=== PATIENT | female | born 1965 | race African-American/Black ===

== ENCOUNTER 2017-03-29 08:06 | Emergency (ER) | payer OTHER ==
[2017-03-29 08:21] VITALS: BP 118/86; PULSE 61; TEMP 98; BMI 23.1
[2017-03-29] MEDS ORDERED: KETOROLAC TROMETHAMINE 60 MG/2 ML VIAL IM ONE (08:31)
[2017-03-29] MEDS ORDERED: KETOROLAC TROMETHAMINE 60 MG/2 ML VIAL ONE (08:35)
--- NOTE | 2017-03-29 08:36 | PDOC ---
History of Present Illness - General History Source: Patient - History of Present Illness Occurred: reports: other Upper Extremity Pain Location: left: shoulder <Chey Viera - Last Filed: 03/29/17 08:31> <Mehdi La - Last Filed: 03/29/17 17:37> - General Chief Complaint: Pain Stated Complaint: PAIN Time Seen by Provider: 03/29/17 08:23 Past History - Past Medical History Anemia: No Asthma: No Cancer: No Cardiac Disorders: No CVA: No COPD: No CHF: No Dementia: No Diabetes: No GI Disorders: Yes (GERD, DIVERTICULITIS) Disorders: No HTN: Yes Hypercholesterolemia: No Liver Disease: No Suicide Attempt (Hx): No Seizures: No Thyroid Disease: No - Surgical History Abdominal Surgery: No Appendectomy: No Cardiac Surgery: No Cholecystectomy: No Lung Surgery: No Neurologic Surgery: No Orthopedic Surgery: No - Family Disease History Family Disease History: Heart Disease: Mother - Immunization History Td Vaccination: Yes (UTD, JANUARY 2013) - Psycho/Social/Smoking Cessation Hx Anxiety: No Suicidal Ideation: No Smoking Status: Yes (QUIT 2005) Smoking History: Never smoked Have you smoked in the past 12 months: No Number of Cigarettes Smoked Daily: 0 If you are a former smoker, when did you quit?: 15 YRS Information on smoking cessation initiated: No Hx Alcohol Use: Yes (SOCIAL) Drug/Substance Use Hx: No Substance Use Type: None Hx Substance Use Treatment: No <Chey Viera - Last Filed: 03/29/17 08:31> <Mehdi La - Last Filed: 03/29/17 17:37> - Past Medical History Allergies/Adverse Reactions: Allergies Allergy/AdvReac Type Severity Reaction Status Date / Time No Known Allergies Allergy Verified 03/29/17 08:21 Home Medications: Ambulatory Orders Enalapril Maleate [Vasotec -] 20 mg PO DAILY 10/29/13 Hydralazine HCl 50 mg PO DAILY 05/11/16 Naproxen [Naprosyn -] 375 mg PO Q12H PRN 03/29/17 Review of Systems - Review of Systems Constitutional: No: Chills, Fever Respiratory: No: Shortness of Breath Cardiac (ROS): No: Chest Pain Musculoskeletal: Yes: Joint Pain. No: Joint Swelling <Chey Viera - Last Filed: 03/29/17 08:31> *Physical Exam - Vital Signs Last Vital Signs Temp Pulse Resp BP Pulse Ox 98 F 61 18 118/86 100 03/29/17 08:13 03/29/17 08:13 03/29/17 08:13 03/29/17 08:13 03/29/17 08:13 - Physical Exam General Appearance: Yes: Appropriately Dressed. No: Apparent Distress HEENT: positive: Normal Voice Neck: positive: Supple Respiratory/Chest: negative: Lungs Clear, Normal Breath Sounds, Respiratory Distress Cardiovascular: negative: Regular Rate, S1, S2 Extremity: positive: Normal Inspection, Tender (to anterior aspect of GH joint, no swelling, FROMI, NVI). negative: Swelling Integumentary: positive: Dry, Warm Neurologic: positive: Fully Oriented, Alert, Normal Mood/Affect <Chey Viera - Last Filed: 03/29/17 08:31> - Vital Signs Last Vital Signs Temp Pulse Resp BP Pulse Ox 98 F 61 18 118/86 100 03/29/17 08:13 03/29/17 08:13 03/29/17 08:13 03/29/17 08:13 03/29/17 08:13 <Mehdi La - Last Filed: 03/29/17 17:37> ED Treatment Course - Medications Given in the ED: ED Medications Discontinued Medications Generic Name Dose Route Start Last Admin Trade Name Freq PRN Reason Stop Dose Admin Ketorolac Tromethamine 60 mg 03/29/17 08:31 03/29/17 08:42 Toradol Injection - IM 03/29/17 08:32 60 mg ONCE ONE Administration <Mehdi La - Last Filed: 03/29/17 17:37> Medical Decision Making - Medical Decision Making 03/29/17 08:31 52-year-old female, chronic neck pain with herniated disc on MRI as per patient , substance abuse on suboxone, here with atraumatic L shoulder pain that started 2 weeks ago and has been persistent, worsening with movement. Taking naproxen with no relief. No chest pain or SOB. Denies acute neck pain and no upper extremity sensory changes, or weakness. See exam Atraumatic shoulder pain M/l MSK -dc w/ pain meds and ortho f/u given duration 03/29/17 08:36 <Chey Viera - Last Filed: 03/29/17 08:31> - Medical Decision Making 03/29/17 17:37 The patient was seen and evaluated in conjunction with SOUTH Viera under my direct supervision, ancillary studies were reviewed. I agree with the plan as outlined by SOUTH Viera. <Mehdi La - Last Filed: 03/29/17 17:37> *DC/Admit/Observation/Transfer <Chey Viera - Last Filed: 03/29/17 08:31> <Mehdi La - Last Filed: 03/29/17 17:37> Diagnosis at time of Disposition: Shoulder pain, left Qualifiers: Chronicity: acute Qualified Code(s): M25.512 - Pain in left shoulder - Discharge Dispostion Disposition: HOME Condition at time of disposition: Good - Referrals Referrals: Mercedez Rodriguez [Primary Care Provider] - Arie Ortiz MD [Staff Physician] - - Patient Instructions Printed Discharge Instructions: Shoulder Sprain Additional Instructions: Continue taking over the counter pain meds and follow up with orthopedics
== END 2017-03-29 08:47 | disposition home or self-care (01) ==
LOC: JER 08:06
PROC: 3E0233Z Introduction of Anti-inflammatory into Muscle, Percutaneous Approach (ICD-10-PCS; principal; 2017-03-29)
DX: M25.512 Pain in left shoulder (principal); M54.2 Cervicalgia; G89.29 Other chronic pain; I10 Essential (primary) hypertension; K21.9 Gastro-esophageal reflux disease without esophagitis
CPT/HCPCS: 96372; 99282-25

== ENCOUNTER 2017-10-09 07:34 | Emergency (ER) | payer OTHER ==
[2017-10-09 08:09] VITALS: BP 138/71; PULSE 67; TEMP 98.8; BMI 22.8
[2017-10-09] MEDS ORDERED: KETOROLAC TROMETHAMINE 60 MG/2 ML VIAL IM ONE (08:09)
--- NOTE | 2017-10-09 08:09 | PDOC ---
History of Present Illness - General Chief Complaint: Back Pain Stated Complaint: CYST Time Seen by Provider: 10/09/17 08:00 History Source: Patient Exam Limitations: No Limitations - History of Present Illness Initial Comments: CHIEF COMPLAINT: 52 y/o female c/o right sided low back pain x 4 days. HISTORY OF PRESENT ILLNESS: The patient states she has been taking tylenol for her symptoms with little relief. She denies f/c, heavy lifting, injury to back , n/v/d, Cp, SOB, abd pain, flank pain, hematuria, dysuria, abnormal vaginal bleeding, abnormal vaginal discharge, saddle anesthesia, bowel/bladder incontinence. Vital signs on arrival are within normal limits REVIEW OF SYSTEMS: GENERAL/CONSTITUTIONAL: No fever/chills. No weakness. No weight change. GASTROINTESTINAL: no abd pain, nausea, vomiting, diarrhea. GENITOURINARY: No dysuria, frequency, or change in urination. MUSCULOSKELETAL: +right low back pain. No joint or muscle swelling or pain. No neck pain. SKIN: No rash or easy bruising. NEUROLOGIC: No headache, vertigo, loss of consciousness, or loss of sensation. PHYSICAL EXAM: GENERAL: The patient is awake, alert, and fully oriented, in no acute distress. She is ambulatory and well appearing. HEAD: Normal with no signs of trauma. ABDOMEN: Soft, non-distended, non-tender even to deep palpation, no hepatomegaly or splenomegaly, no masses. No flank pain with palpation. No suprapubic TTP. BACK: No CVA TTP b/l. Pain with palpation of right lumbar paravertebral muscles at L4-L5 as well as pain with palpation of right gluteal muscle. EXTREMITIES: Normal range of motion, no edema. NEUROLOGICAL: Normal speech, normal gait. CN II-XII grossly intact. No saddle anesthesia. Motor and sensory intact in b/l LEs. SKIN: Warm, dry, normal turgor, no rashes or lesions noted. Past History - Past Medical History Allergies/Adverse Reactions: Allergies Allergy/AdvReac Type Severity Reaction Status Date / Time No Known Allergies Allergy Verified 10/09/17 07:59 Home Medications: Ambulatory Orders Enalapril Maleate [Vasotec -] 20 mg PO DAILY 10/29/13 Anemia: No Asthma: No Cancer: No Cardiac Disorders: No CVA: No COPD: No CHF: No Dementia: No Diabetes: No GI Disorders: Yes (GERD, DIVERTICULITIS) Disorders: No HTN: Yes Hypercholesterolemia: No Liver Disease: No Seizures: No Thyroid Disease: No - Surgical History Abdominal Surgery: No Appendectomy: No Cardiac Surgery: No Cholecystectomy: No Lung Surgery: No Neurologic Surgery: No Orthopedic Surgery: No - Family Disease History Family Disease History: Heart Disease: Mother - Immunization History Td Vaccination: Yes (UTD, JANUARY 2013) - Suicide/Smoking/Psychosocial Hx Smoking Status: Yes (QUIT 2005) Smoking History: Never smoked Have you smoked in the past 12 months: No Number of Cigarettes Smoked Daily: 0 If you are a former smoker, when did you quit?: 15 YRS Information on smoking cessation initiated: No Hx Alcohol Use: No Drug/Substance Use Hx: No Substance Use Type: None Hx Substance Use Treatment: No Trauma Specific PMHX - Complaint Specific PMHX Arthritis: No *Physical Exam - Vital Signs Last Vital Signs Temp Pulse Resp BP Pulse Ox 98.8 F 67 18 138/71 100 10/09/17 07:50 10/09/17 07:50 10/09/17 07:50 10/09/17 07:50 10/09/17 07:50 Medical Decision Making - Medical Decision Making A/P: 52 y/o female with right sided low back pain/sciatica. Plan is as follows : 1. IM toradol 2. PO tylenol 3. UA/culture UA positive for UTI - will send rx for antibiotics. patient is driving so will not give muscle relaxer in the ER. Will d/c to home with rx for naproxen and flexeril. S When I went to find patient to give her the results and the plan for discharge, she was gone. Checked holding and vertical areas and patient was nowhere to be found - eloped. *DC/Admit/Observation/Transfer Diagnosis at time of Disposition: Low back pain Qualifiers: Chronicity: acute Back pain laterality: right Sciatica presence: with sciatica Sciatica laterality: sciatica of right side Qualified Code(s): M54.41 - Lumbago with sciatica, right side UTI (urinary tract infection) Qualifiers: Urinary tract infection type: acute cystitis Hematuria presence: without hematuria Qualified Code(s): N30.00 - Acute cystitis without hematuria - Discharge Dispostion Disposition: ELOPED Condition at time of disposition: Good - Referrals Referrals: Mercedez Rodriguez [Primary Care Provider] - - Patient Instructions Printed Discharge Instructions: DI for Back Pain With Sciatica Additional Instructions: Discharge Instructions: -You have a UTI and low back pain -Prescriptions were sent to your pharmacy for low back pain and the UTI. -One of the prescriptions may make you drowsy -Please do stretches shown to you in the ER multiple times per day -Apply heat and massage to affected area -Follow up with your doctor within 1 week -Return to the ER with any worsening or concerning symptoms. - Post Discharge Activity
[2017-10-09] MEDS ORDERED: KETOROLAC TROMETHAMINE 60 MG/2 ML VIAL ONE (08:20)
[2017-10-09] MEDS ORDERED: ACETAMINOPHEN 325 MG TABLET (FP) PO ONE (08:42)
[2017-10-09] MEDS ORDERED: ACETAMINOPHEN 325 MG TABLET (FP) ONE (08:44)
[2017-10-09 08:50] LABS: URINE APPEARANCE CLOUDY; URINE BILIRUBIN NEGATIVE (NEGATIVE); URINE BLOOD NEGATIVE (NEGATIVE); URINE COLOR YELLOW; URINE GLUCOSE (UA) NEGATIVE (NEGATIVE); URINE KETONE NEGATIVE (NEGATIVE); URINE NITRITE NEGATIVE (NEGATIVE); URINE PROTEIN NEGATIVE (NEGATIVE); URINE UROBILINOGEN NEGATIVE mg/dL (0.2-1.0)
[2017-10-09 08:51] LABS: URINE LEUK ESTERASE 3+ (NEGATIVE)
[2017-10-09 09:19] LABS: EPI CELLS MODERATE /HPF (FEW); URINE BACTERIA RARE /hpf (NONE SEEN); URINE MUCUS RARE
== END 2017-10-09 10:45 | disposition home or self-care (01) ==
LOC: JER 07:34
PROC: 3E0233Z Introduction of Anti-inflammatory into Muscle, Percutaneous Approach (ICD-10-PCS; principal; 2017-10-09)
DX: M54.41 Lumbago with sciatica, right side (principal)
CPT/HCPCS: 81003; 81015; 87086; 96372; 99282-25

== ENCOUNTER 2018-12-15 06:30 | Day surgery (SDC) | payer SELFPAY ==
[2018-12-15] MEDS ORDERED: HEPARIN NA (PORCINE) 5,000 UNITS/ML 1ML VIAL ONE (07:16)
[2018-12-15] MEDS ORDERED: ceFAZolin SODIUM 1 GM VIAL ONE ×2 (07:16→09:45)
[2018-12-15] MEDS ORDERED: MIDAZOLAM HCL 2 MG/2 ML SINGLE DOSE VIAL ONE ×2 (07:59)
[2018-12-15] MEDS ORDERED: fentaNYL CITRATE 250 MCG/5 ML VIAL ONE (09:26)
[2018-12-15] MEDS ORDERED: ROCURONIUM BROMIDE 50 MG/5 ML VIAL ONE ×2 (09:27→10:20)
[2018-12-15] MEDS ORDERED: PROPOFOL 20 ML ONE ×2 (09:27)
[2018-12-15] MEDS ORDERED: ceFAZolin SODIUM 1 GM VIAL IVPB ONE (09:32)
[2018-12-15] MEDS ORDERED: DEXAMETHASONE SOD PHOSPHATE 4 MG/1 ML VIAL ONE (09:45)
[2018-12-15] MEDS ORDERED: LIDOCAINE HCL/PF 2% SDV 5ML VIAL ONE (09:45)
[2018-12-15] MEDS ORDERED: LIDOCAINE HCL 1%, 10 MG/ML (20ML VIAL) INF ONE (10:26)
[2018-12-15] MEDS ORDERED: BACITRACIN 15 GM TUBE TOPICAL OINTMENT ONE (13:13)
[2018-12-15] MEDS ORDERED: ONDANSETRON 4 MG/2 ML VIAL IVPB PRN (14:16)
[2018-12-15] MEDS ORDERED: morphine SULFATE 4 MG/ML VIAL IVPUSH PRN (14:16)
[2018-12-15] MEDS ORDERED: ONDANSETRON 4 MG/2 ML VIAL IVPUSH PRN (14:22)
--- NOTE | 2018-12-15 14:29 | OP ---
Operative Note - Note: Operative Date: 12/15/18 Pre-Operative Diagnosis: cosmetic Operation: liposuction to abdomen, flanks and back, with fat grafting to the buttocks Post-Operative Diagnosis: Same as Pre-op Anesthesia: General Operative Report Dictated: Yes
[2018-12-15] MEDS ORDERED: LACTATED RINGERS SOLUTION 1,000 ML IV SCH ×2 (14:30)
[2018-12-15] MEDS: amLODIPine BESYLATE 5 MG TABLET (FP) PO SCH (16:35)
[2018-12-15] MEDS: ENALAPRIL MALEATE 5 MG TABLET (FP) PO SCH (16:35)
[2018-12-15 16:50] VITALS: BMI 24.1
[2018-12-15] MEDS: CEFAZOLIN 1 GM/D5W 1 GM/50 ML BAG IVPB SCH ×2 (16:55→21:12)
[2018-12-15] MEDS: oxyCODONE HCL 5 MG TABLET PO PRN (19:31)
[2018-12-15] MEDS ORDERED: hydrALAZINE HCL 50 MG TABLET (FP) PO SCH (22:00)
[2018-12-15] MEDS ORDERED: QUEtiapine FUMARATE 25 MG TABLET (FP) PO PRN (23:00)
[2018-12-16] MEDS: oxyCODONE HCL 5 MG TABLET PO PRN ×3 (02:29→12:02)
[2018-12-16] MEDS: CEFAZOLIN 1 GM/D5W 1 GM/50 ML BAG IVPB SCH ×2 (03:47→08:24)
[2018-12-16] MEDS ORDERED: HEPARIN NA (PORCINE) 5,000 UNITS/ML 1ML VIAL SQ SCH (07:00)
[2018-12-16] MEDS: ENALAPRIL MALEATE 5 MG TABLET (FP) PO SCH ×2 (07:28→09:39)
[2018-12-16] MEDS: amLODIPine BESYLATE 5 MG TABLET (FP) PO SCH ×2 (07:28→09:39)
[2018-12-16] MEDS ORDERED: NAPROXEN 250 MG TABLET (FP) PO ONE (08:40)
[2018-12-16] MEDS ORDERED: IBUPROFEN 400 MG TABLET (FP) PO PRN (09:02)
--- NOTE | 2018-12-16 09:18 | PN ---
Progress Note (short form) - Note Progress Note: Anesthesia postop note 53 y/o F s/p GA for liposuction and BBL POD#1, vss, aaox3, c/o soreness No anesthesia complications.
--- NOTE | 2018-12-16 09:24 | OP ---
DATE OF OPERATION: 12/15/2018 PROCEDURE: Liposuction to abdomen, flanks, and back with free-fat grafting to buttocks and hips. ATTENDING SURGEON: Dylan Lara MD RESTAURANT SERVER: None. ANESTHESIA: General endotracheal anesthesia. DESCRIPTION OF PROCEDURE: The patient is marked in the holding area. All risks, benefits, alternatives, limitations, and uncertainties of the surgery are discussed, understood, and agreed to proceed. The patient is given 5000 units of subcutaneous heparin preoperatively. She is given LUPE hose and sequential compression stockings in the holding area. She is then brought to the operating room where 2 g of Ancef were given preoperatively. The patient is positioned in the supine position after anesthesia was given. A Triana catheter was placed. She was prepped and draped in the standard surgical fashion. Position was carefully checked by Surgical and Anesthesia Teams. Timeout was called. The patient, procedure, side, and sites were verified. At this point, liposuction was then performed first by making several stab-wound incisions in predetermined locations. The patient is noted to have, prior to surgery, an umbilical hernia which is reduced prior to any liposuction being performed. The infiltration fluid is a total of 4 L of wetting solution used, 2 on the front and 2 on the back. The first 2 liters comprised of 1 L of normal saline with 20 mL of 1% lidocaine plain and 1 ampule of 1:100,000 epinephrine. The second 2 L, which were used on the back, contained only the ampule of epinephrine with no lidocaine. The infiltration is infiltrated and the full 20 minutes is waiting for hemostatic effect. After this, the safe technique of liposuction was then performed with pre and post tunneling with a 4-mm basket-tipped cannula. Liposuction was also performed with a 4-mm and 5-mm cannula, using the MicroAire Power-Assisted system. MicroAire harvesting system was also used. Fat is washed and processed through the MicroAire system. It is transferred into 20-mL syringes, which were allowed to gravity settle prior to fat injection. At the completion of liposuction, the endpoint is a smooth, even contour with the appearance of blood within the liposuction aspirate. The liposuction holes were closed with a series of interrupted 5-0 nylon suture. Dressings were applied with and Tegaderm. The patient was then transferred into a prone position after the drapes were removed. All operative assistants are available for the transfer. She is transferred onto a Alexis frame with prone view set up. All pressure points were carefully padded. The chest roll for the Alexis frame was properly positioned. The knees were padded. The Triana catheter was up for the transfer. Position was once again thoroughly checked by Surgical and Anesthesia Teams. The axillae were protected with foam. She was then reprepped and draped in the standard surgical fashion. The liposuction on the posterior is performed in the similar safe technique with infiltrating with a total of 2 L of wetting solution, as previously described. After 20 minutes of waiting for the hemostatic effect of the wetting solution, the safe technique of liposuction was performed. It should be noted that the total liposuction aspirate from the anterior surface was 1680 mL. The total liposuction aspirate on the posterior surface was 1000 mL. Post-tunneling was performed as on the anterior surface. The fat was then prepared for injection. It was transferred into 20-mL syringes. Using several stab-wound incisions at locations on the buttocks, the fat is injected in the subcutaneous plane only in the previously drawn areas that the patient is aware of. On the left side and right side, a total of 600 mL each is infiltrated. Endpoint is good symmetric contour. The liposuction and injection holes were closed with a series of interrupted 5-0 nylon suture. Dressings were the same as on the anterior surface. A specialty compression garment for fat grafting of the buttocks is then placed on the patient. The patient was transferred to a supine position for extubation and as soon as possible postoperatively will be transferred to a prone position. Patient awoken from anesthesia, neurovascularly intact, having tolerated the procedure well. DYLAN LARA M.D. [id number]
[2018-12-16 11:26] VITALS: PULSE 88; TEMP 98.3
[2018-12-16 11:50] VITALS: BP 136/64
--- NOTE | 2018-12-16 12:53 | PN ---
Progress Note (short form) - Note Progress Note: POD 1, n complications, all tissue viable without infection. Minimal drainage. Ambulating, receiving sq heparin. OK for discharge. Pain well controlled. f /u Thursday.
== END 2018-12-16 13:39 | disposition home or self-care (01) ==
LOC: JASUSAT 06:30 → JASU-SURG 06:30 → J6S 16:23 → JASUSAT 12-16 13:39
PROVIDERS: ATTEND Plastic Surgery
PROC: 0J073ZZ Alteration of Back Subcutaneous Tissue and Fascia, Percutaneous Approach (ICD-10-PCS; 2018-12-15)
PROC: 0J083ZZ Alteration of Abdomen Subcutaneous Tissue and Fascia, Percutaneous Approach (ICD-10-PCS; principal; 2018-12-15 08:00)
DX: Z41.1 Encounter for cosmetic surgery (principal)
CPT/HCPCS: 84703; 94760; J1644

== ENCOUNTER 2019-05-12 10:46 | Day surgery (SDC) | payer OTHER ==
[2019-05-06 10:57] VITALS: BMI 22.8
--- NOTE | 2019-05-12 07:33 | HP ---
History & Physical Update - History History: No Change - Physical Physical: No Change - Assessment Assessment: No Change - Plan Plan: No Change
--- NOTE | 2019-05-12 10:44 | OP ---
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
--- NOTE | 2019-05-12 10:45 | SURG ---
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 For further detail, please refer to operative report. Visit type - Case Type Case Type: Scheduled - New patient This patient is new to me today: Yes Date on this admission: 05/12/19
[~2019-05-12 10:46] MED LIST: BUPIVACAINE HCL/PF 0.5% (5 MG/ML) 30 ML VIAL IJ ONE; CEFAZOLIN 1 GM in DEXTROSE 5%-WATER - 100 ML IVPB ONE; DEXAMETHASONE SOD PHOSPHATE 4 MG/1 ML VIAL ONE; DEXAMETHASONE SOD PHOSPHATE/PF 10 MG/ML SDV ONE; EPHEDRINE SULFATE/0.9% NACL/PF 50 MG/10 ML SYRINGE NR ONE; GELATIN, ABSORBABLE 100 EACH SPONGE TP ONE; GUM MASTIC/STORAX/MSAL/ALCOHOL 1 DRP DROPSBTL MC ONE; KETAMINE HCL 200 MG/20 ML VIAL ONE; LACTATED RINGERS SOLUTION 1,000 ML IV SCH; LIDOCAINE 1%/EPI 1:100000 (20 ML MULTI DOSE VIAL) ONE; LIDOCAINE HCL/PF 2% SDV 5ML VIAL ONE; MIDAZOLAM HCL 2 MG/2 ML SINGLE DOSE VIAL ONE; ONDANSETRON 4 MG/2 ML VIAL IVPUSH PRN; ONDANSETRON 4 MG/2 ML VIAL ONE; PROPOFOL 20 ML ONE; SODIUM CHLORIDE 0.9% P/F 10 ML VIAL IJ ONE; THROMBIN (BOVINE) 5,000 UNIT VIAL TP ONE; THROMBIN (RECOMBINANT) 5,000 UNIT VIAL TP ONE; ceFAZolin SODIUM 1 GM VIAL ONE; oxyCODONE HCL 10 MG SUSTAINED ACTING TABLET PO ONE; oxyCODONE HCL 10 MG SUSTAINED ACTING TABLET PO STA; oxyCODONE HCL 5 MG TABLET ONE; oxyCODONE HCL 5 MG TABLET PO ONE
[2019-05-12] MEDS ORDERED: KETOROLAC TROMETHAMINE 30 MG/1 ML VIAL IVPUSH PRN (10:52)
[2019-05-12] MEDS ORDERED: oxyCODONE HCL 5 MG TABLET PO PRN (10:52)
[2019-05-12] MEDS ORDERED: ONDANSETRON 4 MG/2 ML VIAL ONE (10:52)
[2019-05-12] MEDS ORDERED: LACTATED RINGERS SOLUTION 1,000 ML IV SCH (11:00)
[2019-05-12] MEDS: KETOROLAC TROMETHAMINE 30 MG/1 ML VIAL IVPUSH PRN ×2 (11:02→23:02)
--- NOTE | 2019-05-12 11:35 | OP ---
DATE OF OPERATION: 05/12/2019 PREOPERATIVE DIAGNOSIS: Spinal stenosis C4-5, C5-6. POSTOPERATIVE DIAGNOSIS: Spinal stenosis C4-5, C5-6. PROCEDURES PERFORMED: 1. Anterior cervical diskectomy and fusion C4-5. 2. Anterior cervical discectomy and fusion C5-6. 3. Placement of prosthetic cages C4-5, C5-6. 4. Placement of instrumentation C4-C6. SURGEON: Rudy Oh MD TELESCOPE MAINTENANCE: SOUTH Rm ESTIMATED BLOOD LOSS: 50 mL. IV FLUIDS: Per anesthesia. ANESTHESIA: General/MCP block. COMPLICATIONS: There were none. DISPOSITION: Patient was brought to the PACU in stable condition. INDICATION FOR SURGERY: Patient is a 54-year-old female who has been suffering from pain from her neck down her arm. X-rays and MRI were completed, which noted that she had a herniated disk at C4-5 and C5-6. She had gone through an exhaustive course of treatment for this including medications, physical therapy as well as injections. Unfortunately, pain continued to persist despite all of this. At this point, risks, benefits, and alternatives were discussed, and the patient consented to surgery. DESCRIPTION OF PROCEDURE: Patient was brought to the operating room by anesthesia staff. After appropriate patient identification was performed, general anesthesia was given, and MCP block was also given. Patient was placed supine onto the OR bed with her arms tucked at the side. All areas of bony prominences were well-padded at this time. Neuromonitoring leads were attached. A shoulder roll was placed underneath her shoulder to extend her neck to the point that she can tolerate in the preoperative holding area. A needle was taped onto her neck to irving off the C4-5 level. X-ray was taken to confirm this was correct. Needle was removed, and 10 mL of lidocaine with epinephrine was injected into her neck at this time. Her neck was prepped and draped in a sterile manner. At this point, a time-out was completed. A 2-inch incision was made on the left side of her neck. Dissection was carried down to the fascia. Fascia was then opened at this time. The platysma was dissected and was opened at this time. The interval between the sternocleidomastoid and strap muscles was developed. Next, the interval between the carotid sheath and trachea and esophagus was developed. Needle was placed into the C4-5 disk. X-ray was taken to confirm this was correct. Needle was removed. Longus colli muscles were elevated off. Retractor blades were set up. A [place] pin was placed into body of C4 and C6. A knife was used to incise the disk, and distraction was applied. At this point, using a series of pituitaries, Kerrisons, and curettes, a diskectomy was completed. The endplates were decorticated at this time. A cages filled with bone graft was placed in. A screw was placed into the body of C4, C5, and C6. [place] pins were removed. AP and lateral x-rays confirmed the instrumentation to be in good position. Final tightening was performed. The platysma was closed with 2-0 Vicryl suture. Skin was closed with 3-0 Monocryl suture. Dermabond was applied. Steri-Strips were applied. A sterile dressing was applied. Patient stayed supine on the OR bed, brought to the PACU in stable condition. Ratna ALMARAZ/[id number]
[2019-05-12] MEDS ORDERED: oxyCODONE HCL 5 MG TABLET ONE (11:59)
[2019-05-12] MEDS ORDERED: DOCUSATE SODIUM 100 MG CAPSULE (FP) PO PRN (13:23)
[2019-05-12] MEDS: METHOCARBAMOL 500 MG TABLET PO SCH ×2 (14:40→21:28)
[2019-05-12] MEDS ORDERED: CEFAZOLIN 1 GM/D5W 1 GRAM/50 ML BAG IVPB SCH (18:00)
[2019-05-12] MEDS ORDERED: QUEtiapine FUMARATE 25 MG TABLET (FP) PO SCH (22:00)
[2019-05-12] MEDS ORDERED: hydrALAZINE HCL 50 MG TABLET (FP) PO SCH (22:00)
[2019-05-12] MEDS ORDERED: ENALAPRIL MALEATE 5 MG TABLET (FP) PO SCH (22:00)
[2019-05-12] MEDS: oxyCODONE HCL 5 MG TABLET PO PRN (23:57)
[2019-05-13] MEDS: DEXAMETHASONE SOD PHOSPHATE 4 MG/1 ML VIAL IVPUSH SCH ×2 (01:38→09:01)
[2019-05-13] MEDS: METHOCARBAMOL 500 MG TABLET PO SCH (06:14)
[2019-05-13] MEDS: KETOROLAC TROMETHAMINE 30 MG/1 ML VIAL IVPUSH PRN (07:44)
--- NOTE | 2019-05-13 07:55 | DS ---
Physical Exam: SUBJECTIVE: Patient seen and examined. POD #1 s/p Anterior Cervical discectomy / fusion C4/5, C5/6; allograft implant; neuromonitoring. Doing well. C/o incisional tenderness. Adequate pain control via medications ordered. Patient is right hand dominant female who had cervical neck pain with RUE radiculopathy (numbness/tingling/weakness) prior too surgery. Also c/o chronic SARKAR associated with neck pain. Now s/p above procedure states her complaints are about 50% resolved. SARKAR still present but have decreased significantly. Denies n/v/f/c, CP. OBJECTIVE: Vital Signs Temperature 98.2 F 05/13/19 05:00 Pulse Rate 71 05/13/19 05:00 Respiratory Rate 18 05/13/19 06:30 Blood Pressure 136/65 05/13/19 06:30 O2 Sat by Pulse Oximetry (%) 100 05/13/19 05:00 PHYSICAL EXAM GENERAL: The patient is awake, alert, and fully oriented, in no acute distress. HEAD: Normal with no signs of trauma. EYES: PERRL, extraocular movements intact, sclera anicteric, conjunctiva clear. NECK: Trachea midline, soft. supple. Incision is c/d/i. No hematoma LUNGS: CTA bilat HEART: RRR. ABDOMEN: Soft, nt. nd. EXTREMITIES: 2+ pulses, warm, well-perfused, no edema. NEUROLOGICAL: CN II - XII grossly intact. Normal speech. PSYCH: Normal mood, normal affect. SKIN: Warm, dry, normal turgor, no rashes or lesions noted. HOSPITAL COURSE: Date of Admission:05/12/19 Date of Discharge: 05/13/19 The patient was admitted to the Med-Surg Unit after an elective repair of her cervical stenosis. Now, s/p Anterior Cervical discectomy / fusion C4/5, C5/6; allograft implant; neuromonitoring. The day of surgery, the patient ambulated the hallways with assistance. Narcotic and non-narcotic pain management control was achieved with an oral and IV approach. An xray was obtained and confirmed hardware placement at C4/5, C5/6 , no fractures or dislocations. Josefina-operative IV ABX were administered. DVT prophylaxis was achieved with SCDs and early ambulation. The patient ambulated with Physical Therapy and no services were recommended upon discharge. Narcotic scripts and or muscle relaxants were checked with [place] [employer] prior to escibe. The discharge instructions and an oral pain management plan were reviewed with the patient. All questions answered. Above plan discussed with Dr. Oh and agreed. Minutes to complete discharge: 35 Visit type - Case Type Case Type: Scheduled - New patient This patient is new to me today: Yes Date on this admission: 05/13/19
[2019-05-13] MEDS ORDERED: ENALAPRIL MALEATE 5 MG TABLET (FP) PO SCH (10:00)
[2019-05-13] MEDS ORDERED: HYDROCHLOROTHIAZIDE 25 MG TABLET (FP) PO SCH (10:00)
[2019-05-13 10:22] VITALS: BP 125/59; PULSE 71; TEMP 98.1
--- NOTE | 2019-05-13 11:27 | PN ---
Progress Note (short form) - Note Progress Note: ANESTHESIA POSTOP 54 YO FEMALE POD#1 S/P ACDF, GETA Patient resting in bed. Tolerating PO. Adequate pain control. Ambulating without difficulty VSS, Afebrile Continue current care, encouraged active participation in PT. No anesthetic complications.
[2019-05-13] MEDS: oxyCODONE HCL 5 MG TABLET PO PRN (12:08)
--- NOTE | 2019-05-13 18:02 | PATH ---
Surgical Pathology Report Patient Name: RYLEE TOVAR [facility]. Rec. #: [id number] /Age/Gender: 1965 (Age: 54) / F Account: [id number] Location: [facility] Taken: 05/12/2019 Received: 05/12/2019 Reported: 05/13/2019 Physicians: Rudy Oh M.D. Specimen(s) Received DISC C4-5, C5-6 Clinical History Cervical stenosis Final Diagnosis DISC, C4-5, C5-6, ANTERIOR CERVICAL DISCECTOMY/FUSION: BENIGN INTERVERTEBRAL DISC TISSUE. Electronically Signed Ludmila Harrington M.D. Gross Description Received in formalin, labeled "disc C4-5, C5-6," is a 1 x 0.7 x 0.3 cm. aggregate of white soft tissue fragments. A bilingual inside sales representative portion is submitted in one cassette. [email or web address]/05/12/2019 [email or web address]/05/12/2019
== END 2019-05-13 12:57 | disposition home or self-care (01) ==
LOC: FASU 10:46 → FM/S 10:46 → FASU 05-13 12:57
PROVIDERS: ATTEND Orthopaedic Surgery Orthopaedic Surgery of the Spine
PROC: 0RG10A0 Fusion of Cervical Vertebral Joint with Interbody Fusion Device, Anterior Approach, Anterior Column, Open Approach (ICD-10-PCS; 2019-05-12)
PROC: 0RG10K0 Fusion of Cervical Vertebral Joint with Nonautologous Tissue Substitute, Anterior Approach, Anterior Column, Open Approach (ICD-10-PCS; 2019-05-12)
PROC: 0RB30ZZ Excision of Cervical Vertebral Disc, Open Approach (ICD-10-PCS; principal; 2019-05-12 09:23)
DX: M48.02 Spinal stenosis, cervical region (principal)
CPT/HCPCS: 22551; 22552; 22845; 22853; C1889; 72050-TC-FY; 88304-TC; 94760; 97116-GP; 97161-GP

== ENCOUNTER 2019-08-22 08:04 | Emergency (ER) | payer OTHER ==
[2019-08-22 08:13] VITALS: BP 116/68; PULSE 65; TEMP 98.3; BMI 23.0
[2019-08-22] MEDS ORDERED: DEXAMETHASONE LIQUID 0.5 MG/5 ML PO ONE (08:55)
[2019-08-22] MEDS ORDERED: ACETAMINOPHEN 325 MG TABLET (FP) PO ONE (08:55)
--- NOTE | 2019-08-22 08:57 | PDOC ---
History of Present Illness - General Chief Complaint: Sore Throat Stated Complaint: SORE THROAT/ EAR PAIN Time Seen by Provider: 08/22/19 08:10 History Source: Patient Exam Limitations: No Limitations Past History - Travel Traveled outside of the country in the last 30 days: No Close contact w/someone who was outside of country & ill: No - Past Medical History Allergies/Adverse Reactions: Allergies Allergy/AdvReac Type Severity Reaction Status Date / Time No Known Allergies Allergy Verified 05/12/19 06:57 Home Medications: Ambulatory Orders Enalapril Maleate 5 mg PO DAILY 03/05/18 Hydralazine HCl 50 mg PO HS 12/14/18 Docusate Sodium [Colace] 100 mg PO PRN PRN 05/06/19 Methocarbamol [Robaxin -] 500 mg PO TID 05/06/19 Multivitamins [Multivit ([facility])] 1 tab PO DAILY 05/06/19 Hydrochlorothiazide [Hctz -] 25 mg PO DAILY 05/12/19 Diazepam [Valium] 2 mg PO TID PRN #24 tablet MDD 3 05/13/19 oxyCODONE HCL [Roxicodone -] 5 mg PO Q4H PRN #20 tablet MDD 6 05/13/19 Fluticasone Prop 0.05% Nasal [Flonase -] 1 - 2 spray NS DAILY #1 spray.pump Ibuprofen 600 mg PO Q6H #30 tablet 08/22/19 Pseudoephedrine HCl 30 mg PO Q8H #21 tablet 08/22/19 Anemia: No Asthma: No Cancer: No Cardiac Disorders: No CVA: No COPD: No CHF: No Dementia: No Diabetes: No GI Disorders: Yes (DIVERTICULITIS) Disorders: No HTN: Yes Hypercholesterolemia: No Liver Disease: No Seizures: No Thyroid Disease: No - Surgical History Abdominal Surgery: No Appendectomy: No Cardiac Surgery: No Cholecystectomy: No Lung Surgery: No Neurologic Surgery: No Orthopedic Surgery: No - Immunization History Td Vaccination: Yes (UTD, JANUARY 2013) - Psycho Social/Smoking Cessation Hx Smoking Status: Yes (QUIT 2005) Smoking History: Never smoked Have you smoked in the past 12 months: No Number of Cigarettes Smoked Daily: 6 If you are a former smoker, when did you quit?: 2003 Information on smoking cessation initiated: No Hx Alcohol Use: No Drug/Substance Use Hx: No Substance Use Type: Prescribed Hx Substance Use Treatment: No Review of Systems - Review of Systems Able to Perform ROS?: Yes Comments:: 08/22/19 08:51 CONSTITUTIONAL: Absent: fever, chills, diaphoresis, generalized weakness, malaise, loss of appetite HEENT: Present: Sore throat, ear pain absent: rhinorrhea, nasal congestion, throat pain , throat swelling, difficulty swallowing, mouth swelling, ear pain, eye pain, visual Changes CARDIOVASCULAR: Absent: chest pain, loss of consciousness, palpitations, irregular heart rate, peripheral edema RESPIRATORY: Absent: cough, shortness of breath, dyspnea with exertion, orthopnea, wheezing, stridor, hemoptysis NEUROLOGIC: Absent: headache, focal weakness or paresthesias, dizziness, unsteady gait, seizure, mental status changes, bladder or bowel incontinence PSYCHIATRIC: Absent: anxiety, depression, suicidal or homicidal ideation, hallucinations. Is the patient limited Slovenian proficient: No *Physical Exam - Vital Signs Last Vital Signs Temp Pulse Resp BP Pulse Ox 98.3 F 65 18 116/68 96 08/22/19 08:07 08/22/19 08:07 08/22/19 08:07 08/22/19 08:07 08/22/19 08:07 - Physical Exam 08/22/19 08:51 GENERAL: The patient is awake, alert, and fully oriented, in no acute distress. HEAD: Normal with no signs of trauma. EYES: Pupils equal, round and reactive to light, extraocular movements intact, sclera anicteric, conjunctiva clear. HEENT: No nasal congestion or rhinorrhea. No sinus Tenderness. Mucous membranes are moist. No tonsillar erythema, exudate or edema. Uvula is midline. No TM bulging , dullness or erythema. The TMs bilaterally however are retracted. EXTREMITIES: Normal range of motion, no edema. NEUROLOGICAL: Normal speech, normal gait. PSYCH: Normal mood, normal affect. SKIN: Warm, Dry, normal turgor, no rashes or lesions noted. Medical Decision Making - Medical Decision Making 08/22/19 08:57 The patient is a 54-year-old female past medical history of hypertension, who presents to the ER today for 1 week of cold-like symptoms. She states that 4 days ago she was still having sore throat and earache. She started taking a leftover prescription of amoxicillin. She states that it did not help so she stopped taking it yesterday. She states she also feels like she has a postnasal drip. Denies fevers, chills, cough, difficulty breathing and shortness of breath. A/P: Pharyngitis On exam throat is nonerythematous with no exudate or edema. The TMs are retracted bilaterally. Likely postnasal drip, viral illness causing fluid changes behind the middle ear Rapid strep sent Decadron and Tylenol given for symptoms Reevaluate 08/22/19 09:20 Patient does not wish to stay for the results of her strep test. We will call with the results We will treat as a viral pharyngitis Discharge home I discussed the physical exam findings, ancillary test results and final diagnoses with the patient. I answered all of the patient's questions. The patient was satisfied with the care received and felt comfortable with the discharge plan and treatment plan. The Patient agrees to follow up with the primary care physician/specialist within 24-72 hours. Return precautions were given. Discharge - Discharge Information Problems reviewed: Yes Clinical Impression/Diagnosis: Pharyngitis Qualifiers: Pharyngitis/tonsillitis etiology: unspecified etiology Qualified Code(s): J02.9 - Acute pharyngitis, unspecified Ear pain Qualifiers: Laterality: bilateral Qualified Code(s): H92.03 - Otalgia, bilateral Condition: Stable Disposition: HOME - Admission No - Follow up/Referral Referrals: Lio Mcneill MD [Staff Physician] - - Patient Discharge Instructions Patient Printed Discharge Instructions: DI for Viral Pharyngitis Additional Instructions: You have a sore throat or pharyngitis and ear pain Take the Sudafed, Flonase, and Motrin as directed Please do warm water gargles and cough drops to help with your pain. Change your toothbrush when you started feeling better. Follow-up with your primary care doctor. Return to the ER for fever, difficulty breathing, difficulty swallowing, or if you have any changes in your symptoms. - Post Discharge Activity Work/Back to School Note: Back to Work
== END 2019-08-22 09:30 | disposition home or self-care (01) ==
LOC: JERFT 08:04
DX: J02.9 Acute pharyngitis, unspecified (principal); H92.03 Otalgia, bilateral; I10 Essential (primary) hypertension
CPT/HCPCS: 87070; 87880; 99281-25

== ENCOUNTER 2019-08-25 13:40 | Emergency (ER) | payer OTHER ==
[2019-08-25 13:44] VITALS: BP 155/78; PULSE 83; TEMP 97.7; BMI 23.5
--- NOTE | 2019-08-25 13:46 | PDOC ---
Rapid Medical Evaluation Chief Complaint: Headache Time Seen by Provider: 08/25/19 13:41 Medical Evaluation: Allergies Allergy/AdvReac Type Severity Reaction Status Date / Time No Known Allergies Allergy Verified 05/12/19 06:57 08/25/19 13:42 I have performed a brief in-person evaluation of this patient. The patient presents with a chief complaint of: headache x 2 days, left sided " is stabbing" , states hurts with pressure/ pushing to left side of scalp. No fevers /exercise change/ injury. S/P Cervical fusion 3mos ago Pertinent physical exam findings: No reproduction with palp. I have ordered the following: nothing The patient will proceed to the ED for further evaluation. Discharge Disposition - Diagnosis Headache - Referrals - Patient Instructions - Post Discharge Activity
[2019-08-25] MEDS ORDERED: ACETAMINOPHEN 500 MG TABLET (FP) PO ONE (14:16)
[2019-08-25] MEDS ORDERED: ACETAMINOPHEN 500 MG TABLET (FP) ONE (14:18)
--- NOTE | 2019-08-25 14:36 | PDOC ---
History of Present Illness - General Chief Complaint: Headache Stated Complaint: HEADACHE Time Seen by Provider: 08/25/19 13:41 - History of Present Illness Initial Comments: 08/25/19 14:22 54 year old female c/o posterior headache x 2 days after receiving decadron for pharyngitis. patient reports pain to be burning in nature. patient has a past medical history of cervical stenosis recent c-spine surgery. denies nausea, vomiting, dizziness, 08/25/19 15:28 Past History - Past Medical History Allergies/Adverse Reactions: Allergies Allergy/AdvReac Type Severity Reaction Status Date / Time No Known Allergies Allergy Verified 08/25/19 13:44 Home Medications: Ambulatory Orders Enalapril Maleate 5 mg PO DAILY 03/05/18 Hydralazine HCl 50 mg PO HS 12/14/18 Docusate Sodium [Colace] 100 mg PO PRN PRN 05/06/19 Methocarbamol [Robaxin -] 500 mg PO TID 05/06/19 Multivitamins [Multivit ([facility] Form[facility])] 1 tab PO DAILY 05/06/19 Hydrochlorothiazide [Hctz -] 25 mg PO DAILY 05/12/19 Diazepam [Valium] 2 mg PO TID PRN #24 tablet MDD 3 05/13/19 oxyCODONE HCL [Roxicodone -] 5 mg PO Q4H PRN #20 tablet MDD 6 05/13/19 Fluticasone Prop 0.05% Nasal [Flonase -] 1 - 2 spray NS DAILY #1 spray.pump Ibuprofen 600 mg PO Q6H #30 tablet 08/22/19 Pseudoephedrine HCl 30 mg PO Q8H #21 tablet 08/22/19 Anemia: No Asthma: No Cancer: No Cardiac Disorders: No CVA: No COPD: No CHF: No Dementia: No Diabetes: No GI Disorders: Yes (DIVERTICULITIS) Disorders: No HTN: Yes Hypercholesterolemia: No Liver Disease: No Seizures: No Thyroid Disease: No - Surgical History Abdominal Surgery: No Appendectomy: No Cardiac Surgery: No Cholecystectomy: No Lung Surgery: No Neurologic Surgery: No Orthopedic Surgery: No - Immunization History Td Vaccination: Yes (UTD, JANUARY 2013) - Psycho Social/Smoking Cessation Hx Smoking Status: Yes (QUIT 2005) Smoking History: Never smoked Have you smoked in the past 12 months: No Number of Cigarettes Smoked Daily: 6 If you are a former smoker, when did you quit?: 2003 Hx Alcohol Use: No Drug/Substance Use Hx: No Substance Use Type: Prescribed Hx Substance Use Treatment: No *Physical Exam - Vital Signs Last Vital Signs Temp Pulse Resp BP Pulse Ox 97.7 F 83 18 155/78 99 08/25/19 13:40 08/25/19 13:40 08/25/19 13:40 08/25/19 13:40 08/25/19 13:40 - Physical Exam General Appearance: Yes: Appropriately Dressed HEENT: negative: Sinus Tenderness Respiratory/Chest: positive: Lungs Clear, Normal Breath Sounds Cardiovascular: positive: Regular Rhythm, Regular Rate Gastrointestinal/Abdominal: positive: Normal Bowel Sounds, Soft Extremity: positive: Normal Capillary Refill, Normal Inspection, Normal Range of Motion Integumentary: positive: Normal Color, Dry, Warm 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 will follow up with pcp Discharge - Discharge Information Problems reviewed: Yes Clinical Impression/Diagnosis: Headache Qualifiers: Headache type: unspecified Headache chronicity pattern: acute headache Intractability: not intractable Qualified Code(s): R51 - Headache Condition: Stable Disposition: HOME - Follow up/Referral - Patient Discharge Instructions Patient Printed Discharge Instructions: DI for Headache Additional Instructions: drink plenty of fluids take Tylenol every 6 hours as needed for headache follow up with your doctor as soon as possible. - Post Discharge Activity Work/Back to School Note: Back to Work
== END 2019-08-25 16:42 | disposition home or self-care (01) ==
LOC: JERFT 13:40
DX: R51 Headache (principal); I10 Essential (primary) hypertension; Z87.19 Personal history of other diseases of the digestive system; Z98.890 Other specified postprocedural states
CPT/HCPCS: 70450-TC; 72125-TC; 99281-25

== ENCOUNTER 2019-09-23 08:09 | Day surgery (SDC) | payer OTHER ==
[2019-09-22 13:59] VITALS: BMI 22.3
[2019-09-23 08:40] VITALS: TEMP 98.2
[2019-09-23] MEDS ORDERED: PROPOFOL 20 ML ONE (11:37)
[2019-09-23] MEDS ORDERED: MIDAZOLAM HCL 2 MG/2 ML SINGLE DOSE VIAL ONE (11:37)
[2019-09-23] MEDS ORDERED: BUPIVACAINE HCL/PF 0.25% (2.5MG/ML) 10 ML VIAL IJ ONE (11:45)
[2019-09-23] MEDS ORDERED: DEXAMETHASONE SOD PHOSPHATE 4 MG/1 ML VIAL IM ONE (11:48)
[2019-09-23] MEDS ORDERED: IOHEXOL 180 MG/1 ML ML IJ ONE (11:48)
[2019-09-23 14:21] VITALS: BP 121/60; PULSE 70
--- NOTE | 2019-10-16 08:12 | PROC ---
Procedure Note Procedure: Date: 09/23/2019 Name of the patient: Caro Nash Preoperative Diagnosis: Neck pain , Cervical spondylosis Postoperative Diagnosis: Same Procedure Performed: Cervical Medial branch block C2-4, Left Anesthesia: Local Procedure: I discussed with the patient in detail about the risks, benefits and alternatives to treatment not only limited to infection, headache, numbness , weakness and injury to nerves, spinal cord, blood vessels and muscles. The patient understood, agreed and signed the written consent The patient was escorted to the fluoroscopic suite and placed in the lateral position with the head supported with pillow to place the spine in neutral position. The level is identified by counting from odontoid process. After povidone-iodine preparation three times, and alcoholx3, the site was draped in sterile fashion. Centroid of cervical pillars were visualized under fluoroscopic imaging, and 1.5 inch 25 G needle was advanced to the x-ray beam to abut to the cervical pillar to the centroid position of C4. After negative aspiration of blood, placement of needle was confirmed in both the AP and the lateral fluoroscopic views. 0.5 ml of 0.25 % preservative free marcaine was injected very slowly after negative aspiration. The needle was withdrawn. Similar procedure was repeated at C3 levels the spread of dye and medication was covering C2 area also.. Bleeding was checked and bandage was placed. There wasno evidence of procedural complications. The patient has significant of relief of pain more than 80%. The patient was transferred to the recovery room. The patient was observed for some time and discharged with a family member as per ASC criteria . The patient was told to apply ice at the injection site. If there is any problem, call my office or report to ER. Please call [phone] for follow up appointment. Khanh Lord M.D.
== END 2019-09-23 13:05 | disposition home or self-care (01) ==
LOC: JASU-SURG 08:09
PROVIDERS: ATTEND Physical Medicine & Rehabilitation
PROC: 3E0T33Z Introduction of Anti-inflammatory into Peripheral Nerves and Plexi, Percutaneous Approach (ICD-10-PCS; 2019-09-23)
PROC: BR14YZZ Fluoroscopy of Cervical Facet Joint(s) using Other Contrast (ICD-10-PCS; 2019-09-23)
PROC: 3E0T3BZ Introduction of Anesthetic Agent into Peripheral Nerves and Plexi, Percutaneous Approach (ICD-10-PCS; principal; 2019-09-23 10:00)
DX: M47.812 Spondylosis without myelopathy or radiculopathy, cervical region (principal); M54.2 Cervicalgia
CPT/HCPCS: 76000-TC-FY

== ENCOUNTER 2019-10-21 07:38 | Day surgery (SDC) | payer OTHER ==
[2019-10-20 17:33] VITALS: BMI 23.1
[2019-10-21] MEDS ORDERED: LIDOCAINE HCL 1%, 10 MG/ML (20ML VIAL) ONE (07:45)
[2019-10-21] MEDS ORDERED: BETAMET ACET/BETAMET NA PH 30 MG/5 ML VIAL ONE (07:46)
[2019-10-21] MEDS ORDERED: BUPIVACAINE HCL/PF 0.25% (2.5MG/ML) 10 ML VIAL ONE (07:46)
[2019-10-21] MEDS ORDERED: oxyCODONE HCL 5 MG TABLET PO PRN (09:00)
[2019-10-21] MEDS ORDERED: ONDANSETRON 4 MG/2 ML VIAL IVPUSH PRN (09:00)
[2019-10-21] MEDS ORDERED: PROPOFOL 20 ML ONE (09:13)
[2019-10-21] MEDS ORDERED: MIDAZOLAM HCL 2 MG/2 ML SINGLE DOSE VIAL ONE (09:14)
[2019-10-21] MEDS ORDERED: DEXAMETHASONE SOD PHOSPHATE/PF 10 MG/ML SDV ONE (09:17)
[2019-10-21] MEDS ORDERED: DEXAMETHASONE SOD PHOSPHATE 10 MG/1 ML VIAL IM ONE (09:28)
[2019-10-21] MEDS ORDERED: LIDOCAINE HCL 1%, 10 MG/ML (50 mL VIAL) IJ ONE (09:28)
[2019-10-21] MEDS ORDERED: IOHEXOL 180 MG/1 ML ML IJ ONE (09:28)
[2019-10-21 10:01] VITALS: TEMP 98
[2019-10-21 11:26] VITALS: BP 110/70; PULSE 70
--- NOTE | 2019-10-23 20:20 | PROC ---
Procedure Note Procedure: Date: 10/21/2019 Name of the patient: Caro Nash Preoperative Diagnosis: neck pain/Cervical radiculopathy right Procedure Performed: Cervical steroid injection at C7-T1 level on Right Anesthesia: Local /MAC Procedure: I discussed with the patient in detail about the risks, benefits and alternatives to treatment not only limited to infection, headache, numbness , weakness and injury to nerves, spinal cord, blood vessels and muscles. The patient understood, agreed and signed the written consent After fully informed written consent was obtained, the patient was escorted to the fluoroscopic suite and placed in the prone position with the head flexed midline. A pillow was placed under the patients chest to increase the cervical inter-laminar space The C7-T1 interspace was visualized under fluoroscopic imaging, and the skin over this site was marked. After povidone-iodine preparation three times, and alcoholx3, the site was draped in sterile fashion. With sterile technique, 2 % lidocaine was injected subcutaneously at the C7-T1 ( right) interspace. An 20- gauge Tuohy epidural needle was inserted and advanced toward the epidural space by means of the loss-of resistance technique. The epidural space was identified on first pass, without evidence of blood, cerebrospinal fluid, or parethesi Needle tip placement within the epidural space was confirmed with 1 mL of nonionic contrast agent (Omnipaque-180), with the epidural space visualized in both the AP and the lateral fluoroscopic views. After careful negative aspiration for blood and cerebrospinal fluid, 3 mL of injectate (1 mL Dexamethasone 10 mg, and 2 mL preservative-free normal saline) was administered. Tuohy needle were gently removed. There was no evidence of procedural complications. The patient tolerated the procedure well. Bleeding was checked. Betadine was wiped off. A sterile bandage was placed. The patient was transferred to the recovery room. The patient was observed for some time and discharged with a family member as per ASC criteria . The patient was told to apply ice at the injection site. If there is any problem, call my office or report to ER. ^ Khanh Lord MD
== END 2019-10-21 11:10 | disposition home or self-care (01) ==
LOC: JASU-SURG 07:38
PROVIDERS: ATTEND Physical Medicine & Rehabilitation
PROC: B01BYZZ Fluoroscopy of Spinal Cord using Other Contrast (ICD-10-PCS; 2019-10-21)
PROC: 3E0R33Z Introduction of Anti-inflammatory into Spinal Canal, Percutaneous Approach (ICD-10-PCS; principal; 2019-10-21 09:00)
DX: M54.12 Radiculopathy, cervical region (principal); M54.2 Cervicalgia
CPT/HCPCS: J1100

== ENCOUNTER 2020-10-03 10:44 | Emergency (ER) | payer OTHER ==
[2020-10-03 10:58] VITALS: BP 143/81; PULSE 70; TEMP 98.1; BMI 23.1
== END 2020-10-03 12:21 | disposition home or self-care (01) ==
LOC: JER 10:44
DX: B34.9 Viral infection, unspecified (principal)
CPT/HCPCS: 99284-25; C9803; U0003

== ENCOUNTER 2021-01-23 17:51 | Emergency (ER) | payer OTHER ==
[2021-01-23 18:15] VITALS: BP 122/76; PULSE 84; TEMP 98.3; BMI 23.8
[2021-01-24 10:14] LABS: SARS-CoV-2 NAA Not Detected (Not Detected)
== END 2021-01-23 19:53 | disposition home or self-care (01) ==
LOC: JER 17:51
DX: R06.02 Shortness of breath (principal); Z11.52 Encounter for screening for COVID-19
CPT/HCPCS: 99283-25; C9803; U0003; U0005

== ENCOUNTER 2021-01-25 09:34 | Emergency (ER) | payer OTHER ==
[2021-01-25 09:48] VITALS: BP 166/106; PULSE 93; TEMP 97.9; BMI 23.1
== END 2021-01-25 11:30 | disposition left against medical advice (07) ==
LOC: JER 09:34
DX: I10 Essential (primary) hypertension (principal)
CPT/HCPCS: 93005; 93010; 99283-25

== ENCOUNTER 2021-04-02 17:35 | Emergency (ER) | payer OTHER ==
[2021-04-02 17:42] VITALS: BP 125/78; PULSE 99; TEMP 97.6; BMI 23.1
== END 2021-04-02 20:00 | disposition left against medical advice (07) ==
LOC: JER 17:35
DX: R42 Dizziness and giddiness (principal)
CPT/HCPCS: 99281-25

== ENCOUNTER 2021-05-16 06:38 | Emergency (ER) | payer OTHER ==
[2021-05-16 07:10] VITALS: BP 129/69; PULSE 68; TEMP 98.2; BMI 23.1
== END 2021-05-16 08:50 ==
LOC: JER 06:38
DX: M26.601 Right temporomandibular joint disorder, unspecified (principal)
CPT/HCPCS: 99282-25

== ENCOUNTER 2021-10-31 10:07 | Emergency (ER) | payer OTHER ==
[2021-10-31 10:42] VITALS: TEMP 97.8; BMI 23.1
[2021-10-31] MEDS ORDERED: ACETAMINOPHEN 1000 MG/100 ML BAG IVPB ONE (11:14)
[2021-10-31] MEDS ORDERED: SODIUM CHLORIDE 0.9% 500 ML INFUS.BAG IV ONE (11:14)
[2021-10-31] MEDS ORDERED: ACETAMINOPHEN INJECTION 100 ML IVPB ONE (11:45)
[2021-10-31 12:16] LABS: BASO % 0.4 % (0-2.0); EOS % 0.8 % (0-4.5); HEMATOCRIT 34.2 % (32.4-45.2); MCHC 35.1 g/dl (32.0-36.0); MEAN PLT VOLUME 6.5 fl (7.5-11.1); MONO % 6.7 % (3.8-10.2); NEUT % 65.1 % (42.8-82.8); PLATELET COUNT 451 10^3/uL (134-434); RBC 3.76 M/mm3 (3.60-5.2); RDW 12.7 % (11.6-15.6)
[2021-10-31 12:31] LABS: ACTIVATED PTT 30.1 SECONDS (25.2-36.5); INR 1.11 (0.83-1.09); PROTHROMBIN TIME (PATIENT) 12.8 SEC (9.7-13.0)
[2021-10-31 12:32] LABS: CALCIUM 9.9 mg/dL (8.5-10.1)
[2021-10-31 12:34] LABS: ALBUMIN 4.1 g/dl (3.4-5.0); MAGNESIUM 2.1 mg/dL (1.8-2.4)
[2021-10-31] MEDS ORDERED: morphine CARPU-JECT 2 MG/1 ML DISP.SYRIN IVPUSH ONE (12:34)
[2021-10-31 12:37] LABS: CREATININE 0.9 mg/dL (0.55-1.3)
[2021-10-31 13:00] LABS: EPI CELLS 32 /uL (0-25.1); HYALINE CASTS 1 /uL (0-3.1); PH,URINE 6.5 (5.0-8.0); URINE APPEARANCE CLEAR; URINE BACTERIA 4 /uL (0-1359); URINE BILIRUBIN NEGATIVE (NEGATIVE); URINE COLOR YELLOW; URINE GLUCOSE (UA) NEGATIVE (NEGATIVE); URINE KETONE NEGATIVE (NEGATIVE); URINE LEUK ESTERASE 1+ (NEGATIVE); URINE NITRITE NEGATIVE (NEGATIVE); URINE PROTEIN NEGATIVE (NEGATIVE); URINE RBC 4 /uL (0-23.9); URINE UROBILINOGEN 0.2 mg/dL (0.2-1.0); URINE WBC 11 /uL (0-25.8)
[2021-10-31 13:09] LABS: BILIRUBIN,TOTAL 0.6 mg/dL (0.2-1); TOT PROT 8.3 g/dl (6.4-8.2)
[2021-10-31 16:09] VITALS: BP 124/78; PULSE 85
== END 2021-10-31 16:10 | disposition home or self-care (01) ==
LOC: JER 10:07
PROC: 3E0333Z Introduction of Anti-inflammatory into Peripheral Vein, Percutaneous Approach (ICD-10-PCS; principal; 2021-10-31)
PROC: 3E033NZ Introduction of Analgesics, Hypnotics, Sedatives into Peripheral Vein, Percutaneous Approach (ICD-10-PCS; 2021-10-31)
DX: R10.9 Unspecified abdominal pain (principal); D25.9 Leiomyoma of uterus, unspecified
CPT/HCPCS: 36415; 71045-TC-FY; 74177-TC; 76830-TC; 80053; 81003; 83605; 83690; 83735; 85025; 85610; 85730; 87086; 87110; 99285-25; Q9967

== ENCOUNTER 2022-01-25 09:51 | Observation (INO) | payer OTHER ==
[2022-01-25 09:58] VITALS: BMI 22.9
[2022-01-25] MEDS ORDERED: MAG HYDROX/AL HYDROX/SIMETH -MYLANTA- ORAL SUSPENSION PO ONE (10:30)
[2022-01-25] MEDS ORDERED: FAMOTIDINE 20 MG/50 ML IVPB 20 MG/50 ML MG IVPB ONE ×2 (10:30→11:07)
[2022-01-25] MEDS ORDERED: LACTATED RINGERS SOLUTION 1000 ML INFUS.BAG IV ONE (10:30)
[2022-01-25] MEDS ORDERED: SIMETHICONE 80 MG TAB.CHEW (FP) PO ONE (10:31)
[2022-01-25] MEDS ORDERED: ACETAMINOPHEN 1000 MG/100 ML BAG IVPB ONE (10:34)
[2022-01-25] MEDS ORDERED: ACETAMINOPHEN INJECTION 100 ML IVPB ONE (11:06)
[2022-01-25] MEDS ORDERED: SIMETHICONE 80 MG TAB.CHEW (FP) ONE (11:06)
[2022-01-25] MEDS ORDERED: MAG HYDROX/AL HYDROX/SIMETH 30 ML UNIT-DOSE CUP ONE ×3 (11:07→22:36)
[2022-01-25 11:24] LABS: BASO % 0.9 % (0-2.0); EOS % 0.6 % (0-4.5); HEMATOCRIT 33.9 % (32.4-45.2); HEMOGLOBIN 11.5 GM/dL (10.7-15.3); LYMPH % 25.3 % (8-40); MCH 30.6 pg (25.7-33.7); MCHC 33.9 g/dl (32.0-36.0); MEAN CELL VOLUME 90.1 fl (80-96); MEAN PLT VOLUME 6.7 fl (7.5-11.1); MONO % 6.6 % (3.8-10.2); NEUT % 66.6 % (42.8-82.8); PLATELET COUNT 503 10^3/uL (134-434); RBC 3.76 M/mm3 (3.60-5.2); RDW 12.3 % (11.6-15.6); WHITE BLOOD COUNT 5.8 K/mm3 (4.0-10.0)
[2022-01-25 11:43] LABS: PH,URINE 7.5 (5.0-8.0); URINE APPEARANCE CLEAR; URINE BILIRUBIN NEGATIVE (NEGATIVE); URINE COLOR YELLOW; URINE GLUCOSE (UA) NEGATIVE (NEGATIVE); URINE KETONE NEGATIVE (NEGATIVE); URINE LEUK ESTERASE NEGATIVE (NEGATIVE); URINE NITRITE NEGATIVE (NEGATIVE); URINE PROTEIN NEGATIVE (NEGATIVE); URINE UROBILINOGEN 0.2 mg/dL (0.2-1.0)
[2022-01-25 11:44] LABS: CALCIUM 9.9 mg/dL (8.5-10.1)
[2022-01-25 11:45] LABS: BLOOD UREA NITROGEN 12.1 mg/dL (7-18)
[2022-01-25 11:47] LABS: CREATININE 0.9 mg/dL (0.55-1.3)
[2022-01-25 11:49] LABS: BILIRUBIN,TOTAL 0.8 mg/dL (0.2-1); TOT PROT 7.9 g/dl (6.4-8.2)
[2022-01-25] MEDS ORDERED: KETOROLAC TROMETHAMINE 15 MG/ML VIAL IVPUSH ONE (12:46)
[2022-01-25] MEDS ORDERED: KETOROLAC TROMETHAMINE 15 MG/ML VIAL ONE (13:02)
[2022-01-25] MEDS ORDERED: morphine CARPU-JECT 4 MG/1 ML DISP.SYRIN IVPUSH ONE (13:04)
[2022-01-25] MEDS ORDERED: morphine SULFATE 4 MG/ML VIAL ONE (13:18)
[2022-01-25] MEDS ORDERED: ONDANSETRON 4 MG/2 ML VIAL IVPUSH PRN (13:20)
[2022-01-25] MEDS ORDERED: MAG HYDROX/AL HYDROX/SIMETH 30 ML UNIT-DOSE CUP PO PRN (13:21)
[2022-01-25] MEDS ORDERED: FAMOTIDINE 20 MG/50 ML IVPB 20 MG/50 ML MG IVPB SCH (13:30)
[2022-01-25] MEDS ORDERED: METHOCARBAMOL 500 MG TABLET ONE ×2 (16:42→20:41)
[2022-01-25] MEDS ORDERED: ENALAPRIL MALEATE 5 MG TABLET ONE (16:42)
[2022-01-25] MEDS: METHOCARBAMOL 500 MG TABLET PO SCH ×2 (16:55→23:22)
[2022-01-25] MEDS: ENALAPRIL MALEATE 10 MG TABLET PO SCH (16:55)
[2022-01-25] MEDS: D5-1/2NS+10 MEQ KCL - 10 MEQ/1,000 ML INFUS.BAG IV SCH (16:55)
[2022-01-25] MEDS ORDERED: oxyCODONE HCL 5 MG TABLET ONE ×2 (16:57→21:15)
[2022-01-25] MEDS: oxyCODONE HCL 5 MG TABLET PO PRN ×2 (17:01→21:26)
[2022-01-25] MEDS: MAG HYDROX/AL HYDROX/SIMETH 30 ML UNIT-DOSE CUP PO PRN ×2 (17:01→22:38)
[2022-01-25] MEDS ORDERED: POLYETHYLENE GLYCOL (HEALTHYLAX) 3350 17 GM PACKET ONE (20:40)
[2022-01-25] MEDS ORDERED: PANTOPRAZOLE SODIUM 40 MG VIAL ONE (20:41)
[2022-01-25] MEDS: PANTOPRAZOLE SODIUM 40 MG VIAL IVPUSH SCH (21:26)
[2022-01-25] MEDS ORDERED: hydrOXYzine PAMOATE 50 MG CAPSULE (FP) PO PRN (22:00)
[2022-01-25] MEDS: POLYETHYLENE GLYCOL (HEALTHYLAX) 3350 17 GM PACKET PO SCH (22:22)
[2022-01-26] MEDS ORDERED: MAG HYDROX/AL HYDROX/SIMETH 30 ML UNIT-DOSE CUP ONE (02:44)
[2022-01-26] MEDS ORDERED: oxyCODONE HCL 5 MG TABLET ONE ×2 (02:44→09:26)
[2022-01-26] MEDS: MAG HYDROX/AL HYDROX/SIMETH 30 ML UNIT-DOSE CUP PO PRN ×2 (02:48→19:06)
[2022-01-26] MEDS: oxyCODONE HCL 5 MG TABLET PO PRN ×4 (02:50→23:14)
[2022-01-26 08:08] LABS: BASO % 0.5 % (0-2.0); EOS % 1.6 % (0-4.5); HEMATOCRIT 28.4 % (32.4-45.2); HEMOGLOBIN 9.5 GM/dL (10.7-15.3); LYMPH % 29.4 % (8-40); MCH 30.7 pg (25.7-33.7); MCHC 33.6 g/dl (32.0-36.0); MEAN CELL VOLUME 91.5 fl (80-96); MEAN PLT VOLUME 6.5 fl (7.5-11.1); MONO % 9.3 % (3.8-10.2); NEUT % 59.2 % (42.8-82.8); PLATELET COUNT 398 10^3/uL (134-434); RDW 12.4 % (11.6-15.6); WHITE BLOOD COUNT 6.5 K/mm3 (4.0-10.0)
[2022-01-26 08:36] LABS: BLOOD UREA NITROGEN 9.7 mg/dL (7-18); CALCIUM 8.9 mg/dL (8.5-10.1)
[2022-01-26 08:37] LABS: ALBUMIN 3.4 g/dl (3.4-5.0)
[2022-01-26 08:39] LABS: BILIRUBIN,DIRECT 0.2 mg/dL (0.0-0.2); CREATININE 0.8 mg/dL (0.55-1.3)
[2022-01-26 08:41] LABS: BILIRUBIN,TOTAL 0.6 mg/dL (0.2-1); TOT PROT 6.4 g/dl (6.4-8.2)
[2022-01-26] MEDS ORDERED: hydrOXYzine PAMOATE 25 MG CAPSULE (FP) PO ONE (09:26)
[2022-01-26] MEDS: ENALAPRIL MALEATE 10 MG TABLET PO SCH (09:37)
[2022-01-26] MEDS: METHOCARBAMOL 500 MG TABLET PO SCH ×3 (10:30→21:41)
[2022-01-26] MEDS ORDERED: METHOCARBAMOL 500 MG TABLET ONE (10:36)
[2022-01-26] MEDS ORDERED: DICYCLOMINE HCL 10 MG CAPSULE PO ONE (11:39)
[2022-01-26] MEDS ORDERED: DICYCLOMINE HCL 10 MG CAPSULE ONE (11:49)
[2022-01-26] MEDS ORDERED: PANTOPRAZOLE 40 MG TABLET PO ONE (11:49)
[2022-01-26] MEDS ORDERED: POLYETHYLENE GLYCOL (HEALTHYLAX) 3350 17 GM PACKET ONE (11:49)
[2022-01-26] MEDS: PANTOPRAZOLE SODIUM 40 MG VIAL IVPUSH SCH ×2 (12:00→21:41)
[2022-01-26] MEDS: POLYETHYLENE GLYCOL (HEALTHYLAX) 3350 17 GM PACKET PO SCH ×2 (12:00→21:41)
[2022-01-26 15:45] LABS: BASO % 0.6 % (0-2.0); EOS % 1.7 % (0-4.5); HEMATOCRIT 29.4 % (32.4-45.2); HEMOGLOBIN 10.2 GM/dL (10.7-15.3); LYMPH % 29.7 % (8-40); MCH 30.9 pg (25.7-33.7); MCHC 34.7 g/dl (32.0-36.0); MEAN CELL VOLUME 89.2 fl (80-96); MONO % 7.6 % (3.8-10.2); NEUT % 60.4 % (42.8-82.8); PLATELET COUNT 414 10^3/uL (134-434); RDW 12.5 % (11.6-15.6); WHITE BLOOD COUNT 6.7 K/mm3 (4.0-10.0)
[2022-01-26 15:46] LABS: MEAN PLT VOLUME 5.8 fl (7.5-11.1)
[2022-01-26] MEDS ORDERED: MELATONIN 5 MG TABLETS PO PRN (16:17)
[2022-01-26] MEDS: D5-1/2NS+10 MEQ KCL - 10 MEQ/1,000 ML INFUS.BAG IV SCH (17:18)
[2022-01-26] MEDS: ACETAMINOPHEN 1000 MG/100 ML BAG IVPB PRN (19:10)
[2022-01-27] MEDS: MAG HYDROX/AL HYDROX/SIMETH 30 ML UNIT-DOSE CUP PO PRN (01:54)
[2022-01-27] MEDS: ACETAMINOPHEN 1000 MG/100 ML BAG IVPB PRN ×2 (04:02→12:36)
[2022-01-27] MEDS: METHOCARBAMOL 500 MG TABLET PO SCH ×3 (06:26→14:48)
[2022-01-27] MEDS: oxyCODONE HCL 5 MG TABLET PO PRN ×2 (08:02→15:01)
[2022-01-27 09:06] LABS: HEMATOCRIT 31.8 % (32.4-45.2); HEMOGLOBIN 10.8 GM/dL (10.7-15.3); MCH 30.7 pg (25.7-33.7); MCHC 33.9 g/dl (32.0-36.0); MEAN CELL VOLUME 90.5 fl (80-96); MEAN PLT VOLUME 6.7 fl (7.5-11.1); PLATELET COUNT 459 10^3/uL (134-434); RBC 3.52 M/mm3 (3.60-5.2); RDW 12.4 % (11.6-15.6); WHITE BLOOD COUNT 5.4 K/mm3 (4.0-10.0)
[2022-01-27] MEDS: POLYETHYLENE GLYCOL (HEALTHYLAX) 3350 17 GM PACKET PO SCH (09:23)
[2022-01-27] MEDS: PANTOPRAZOLE SODIUM 40 MG VIAL IVPUSH SCH (09:24)
[2022-01-27 09:32] LABS: CHLORIDE 100 mmol/L (98-107); SODIUM 136 mmol/L (136-145)
[2022-01-27] MEDS ORDERED: ENALAPRIL MALEATE 10 MG TABLET PO SCH (10:00)
[2022-01-27 10:08] LABS: BLOOD UREA NITROGEN 8.4 mg/dL (7-18); CALCIUM 9.5 mg/dL (8.5-10.1); GLUCOSE,RANDOM 97 mg/dL (74-106)
[2022-01-27 10:09] LABS: ANION GAP 8 MMOL/L (8-16); CO2 29 mmol/L (21-32)
[2022-01-27 10:12] LABS: IRON SERUM 48 ug/dL (50-175)
[2022-01-27 10:13] LABS: TOTAL IRON BINDING CAPACITY 296 ug/dL (250-450)
[2022-01-27 10:23] LABS: MAGNESIUM 3.1 mg/dL (1.8-2.4)
[2022-01-27 10:27] LABS: PHOSPHOROUS 4.3 mg/dL (2.5-4.9)
[2022-01-27 10:53] LABS: CREATININE 0.9 mg/dL (0.55-1.3)
[2022-01-27] MEDS: D5-1/2NS+10 MEQ KCL - 10 MEQ/1,000 ML INFUS.BAG IV SCH (12:40)
[2022-01-27] MEDS ORDERED: MAG HYDROX/AL HYDROX/SIMETH 30 ML UNIT-DOSE CUP PO SCH (14:00)
[2022-01-27 15:09] VITALS: BP 135/79; PULSE 62; TEMP 98.4
[2022-01-27] MEDS ORDERED: PANTOPRAZOLE 40 MG TABLET PO SCH (22:00)
[2022-01-28] MEDS ORDERED: ENOXAPARIN NA (PORCINE) 40 MG/0.4 ML DISP.SYRIN SQ SCH (10:00)
[2022-01-28 20:11] LABS: GLIADIN ANTIBODY IGA 7 units (0-19); GLIADIN ANTIBODY IGG 3 units (0-19); TRANSGLUTAMINASE IGG < 2 U/mL (0-5)
== END 2022-01-27 16:29 | disposition home or self-care (01) ==
LOC: JER 09:51 → JERBED 13:07 → J8W 01-26 14:58
PROVIDERS: ADMIT Internal Medicine; ATTEND Internal Medicine
PROC: 3E033NZ Introduction of Analgesics, Hypnotics, Sedatives into Peripheral Vein, Percutaneous Approach (ICD-10-PCS; principal; 2022-01-25)
PROC: 3E033GC Introduction of Other Therapeutic Substance into Peripheral Vein, Percutaneous Approach (ICD-10-PCS; 2022-01-25)
PROC: 3E0337Z Introduction of Electrolytic and Water Balance Substance into Peripheral Vein, Percutaneous Approach (ICD-10-PCS; 2022-01-25)
DX: K21.00 Gastro-esophageal reflux disease with esophagitis, without bleeding (principal); R10.13 Epigastric pain; K44.9 Diaphragmatic hernia without obstruction or gangrene; I10 Essential (primary) hypertension; K57.90 Diverticulosis of intestine, part unspecified, without perforation or abscess without bleeding; G89.29 Other chronic pain; M54.50 Low back pain, unspecified; F41.9 Anxiety disorder, unspecified; R07.9 Chest pain, unspecified; K76.0 Fatty (change of) liver, not elsewhere classified; R00.1 Bradycardia, unspecified; R13.19 Other dysphagia
CPT/HCPCS: 36415; 71045-TC-FY; 76705-TC; 80048; 80053; 80076; 81003; 82150; 82607; 82728; 82746; 82784; 83516; 83540; 83550; 83690; 83735; 84100; 84155; 84165; 84484; 85025; 85027; 85045; 86140; 86334; 87086; 88305-TC; 88312-TC; 88342-TC; 93005; 93010; 96365; 96375; 96376; 99285-25; C9803-CS; G0378; U0003; U0005

== ENCOUNTER → 2024-09-21 | Day surgery (SDC) | payer OTHER | END | disposition home or self-care (01) | LOC: JRADUS-SUR 08:19 | PROVIDERS: ATTEND Internal Medicine | PROC: 0H9T3ZX Drainage of Right Breast, Percutaneous Approach, Diagnostic (ICD-10-PCS; principal; 2024-09-21) | DX: N60.11 Diffuse cystic mastopathy of right breast (principal) | CPT/HCPCS: 19083; 76942-TC; 77065-TC; 87899; 88305-TC; A4648 ==